=== PATIENT | female | born 1960 | race Asian ===

== ENCOUNTER → 2018-02-24 07:44 | Outpatient (CLI) | payer OTHER, SELFPAY ==
--- NOTE | 2018-02-24 | DI.MG.S_ITS ---
BILATERAL DIGITAL SCREENING MAMMOGRAM 3D/2D WITH CAD: 02/24/2018 CLINICAL: Routine screening. Comparison is made to exams dated: 01/18/2016 mammogram, 02/07/2015 mammogram - [facility], and 04/02/2014 [facility]. The tissue of both breasts is extremely dense, which lowers the sensitivity of mammography. Current study was also evaluated with a Computer Aided Detection (CAD) system. There are clustered calcifications in the left breast at 12 o'clock posterior depth. No other significant masses, calcifications, or other findings are seen in either breast. IMPRESSION: INCOMPLETE: NEEDS ADDITIONAL IMAGING EVALUATION The clustered calcifications in the left breast are indeterminate. Spot magnification views are recommended. This exam was interpreted at Station ID: [id number]. NOTE: For mammograms, a report in lay terms will be sent to the patient. Approximately 15% of breast malignancies will not be visualized mammographically. In the management of a palpable breast mass, a negative mammogram must not discourage biopsy of a clinically suspicious lesion. Electronically Signed By: Isatu [email or web address]:02/24/2018 17:03:10 letter sent: Additional Imaging Needed ACR BI-RADS Category 0: Incomplete 3340F
== END ==
PROVIDERS: Visit Provider Internal Medicine
DX: Z12.31 Encounter for screening mammogram for malignant neoplasm of breast (principal)
CPT/HCPCS: 77063; 77067

== ENCOUNTER → 2018-03-06 08:01 | Outpatient (CLI) | payer OTHER, SELFPAY ==
--- NOTE | 2018-03-06 | DI.MG.S_ITS ---
UNILATERAL LEFT DIGITAL DIAGNOSTIC MAMMOGRAM 3D/2D WITH ADDITIONAL VIEWS: 03/06/2018 CLINICAL: Additional evaluation requested from prior study. Comparison is made to exams dated: 02/24/2018 mammogram - [facility], 01/18/2016 mammogram, and 02/07/2015 mammogram - [facility]. The tissue of the left breast is extremely dense, which lowers the sensitivity of mammography. There are benign scattered round calcifications in the left breast at 12 o'clock posterior depth. No other significant masses or calcifications are seen in the breast. IMPRESSION: BENIGN There is no mammographic evidence of malignancy. A 1 year screening mammogram is recommended. This exam was interpreted at Station ID: [id number]. NOTE: For mammograms, a report in lay terms will be sent to the patient. Approximately 15% of breast malignancies will not be visualized mammographically. In the management of a palpable breast mass, a negative mammogram must not discourage biopsy of a clinically suspicious lesion. Electronically Signed By: Isatu [email or web address]:03/06/2018 08:58:06 letter sent: Normal Exam ACR BI-RADS Category 2: Benign Finding(s) 3342F
== END ==
PROVIDERS: Visit Provider Internal Medicine
DX: R92.1 Mammographic calcification found on diagnostic imaging of breast (principal)
CPT/HCPCS: 77065; G0279